=== PATIENT | male | born 1960 | race African-American/Black ===

== ENCOUNTER 2017-04-03 14:16 | Emergency (ER) | payer SELFPAY ==
[~2017-04-03] VITALS: Ht 185.4 cm; Wt 95.0 kg
[~2017-04-03 14:16] MED LIST: AMLO10TA80 PO; HYDR-523 PO; MELO-58 PO
[2017-04-03 21:40] VITALS: BP 150/83
[2017-04-03 23:33] LABS: CLARITY URINE CLEAR (CLEAR); COLOR URINE DARK YELLOW (YELLOW); GLUCOSE URINE NEGATIVE (NEGATIVE); KETONES URINE TRACE (NEGATIVE); LEUKOCYTE ESTERASE URINE NEGATIVE (NEGATIVE); NITRITE URINE NEGATIVE (NEGATIVE); OCCULT BLOOD URINE NEGATIVE (NEGATIVE); PROTEIN URINE NEGATIVE (NEGATIVE); SPECIFIC GRAVITY URINE 1.027 (1.005-1.030)
[2017-04-04 00:15] LABS: BASOPHILS % 0.3 % (0.0-2.0); EOSINOPHILS % 1.8 % (0.0-5.0); HEMATOCRIT. 40.4 % (42.0-52.0); HEMOGLOBIN. 13.9 g/dL (14.0-18.0); LYMPHOCYTES % 19.2 % (20.0-50.0); MEAN CORPUSCULAR HEMOGLOBIN 33.4 pg (28.0-32.0); MEAN CORPUSCULAR VOLUME 97.4 fL (80.0-94.0); MEAN PLATELET VOLUME 7.8 fl (7.4-10.4); MONOCYTES % 7.7 % (2.0-8.0); PLATELET 202 x1000/uL (130-400); RED BLOOD CELL COUNT 4.15 mill/uL (4.7-6.1); RED CELL DISTRIBUTION WIDTH 12.5 % (11.6-14.6)
[2017-04-04 00:20] LABS: CHLORIDE 101 mEq/L (98-107)
[2017-04-04 00:28] LABS: CARBON DIOXIDE 29 mEq/L (21-32)
== END 2017-04-04 00:48 | disposition home or self-care (01) ==
LOC: ER 14:35
DX: B34.9 Viral infection, unspecified (principal); I10 Essential (primary) hypertension
CPT/HCPCS: 36415; 80053; 81003; 85025; 99284; Z7610

== ENCOUNTER 2017-05-18 21:23 | Emergency (ER) | payer MEDICAID, OTHER ==
[~2017-05-18] VITALS: Ht 185.4 cm; Wt 97.5 kg
[2017-05-19] MEDS ORDERED: IBUPROFEN 600MG TABLET PO STA (00:38)
[2017-05-19 01:59] VITALS: BP 139/86
== END 2017-05-19 01:59 | disposition home or self-care (01) ==
LOC: ER 21:25
DX: S90.112A Contusion of left great toe without damage to nail, initial encounter (principal); I10 Essential (primary) hypertension; W22.8XXA Striking against or struck by other objects, initial encounter; Y93.89 Activity, other specified; Y99.8 Other external cause status; Y92.89 Other specified places as the place of occurrence of the external cause
CPT/HCPCS: 73630; 99284; Z7610